=== PATIENT | male | born 1995 | race Caucasian/White ===

== ENCOUNTER 2018-04-16 04:32 | Emergency (ER) | payer SELFPAY ==
[2018-04-16 04:35] VITALS: BP 154/105
--- NOTE | 2018-04-16 04:44 | ER Report ---
History and Physical Time Seen By MD: 04:42 HPI/ROS CHIEF COMPLAINT: Senior Living clearance HISTORY OF PRESENT ILLNESS: This is a 22 year old male. He is here with the [employer] for nursing home clearance. Drinking heavily tonight, he is a chronic alcoholic. Only complaint is chronic back pain, but not treated by a physician. No other complaints. No concerns from the officers. Blew over 300. Reviewed Nurses Notes: Yes Constitutional Vital Sign - Last 24 Hours 04/16/18 04:35 Temp 97.7 Physical Exam General Appearance: Alert, intoxicated, emotional. Eyes: Pupils equal and round with scleral injection. ENT: Normal oral mucosa. Moist mucous membranes. Tympanic membranes are normal. Neck: Neck is supple and non tender. Respiratory: Chest is non tender, lungs are clear to auscultation. Cardiac: regular rate and rhythm Gastrointestinal: Abdomen is soft and non tender, no masses, bowel sounds normal. Musculoskeletal: Extremities have full range of motion. Skin: No rashes or lesions. DIFFERENTIAL DIAGNOSIS: After history and physical exam differential diagnosis was considered for alcohol intoxication Medical Decision Making ED Course/Re-evaluation ED Course No concerns this time, cleared to go to nursing home Decision to Disposition Date: Apr 16, 2018 Decision to Disposition Time: 04:52 Depart Departure Latest Vital Signs Vital Signs Date Time Temp Pulse Resp B/P (MAP) Pulse Ox O2 Delivery O2 Flow Rate FiO2 04/16/18 04:35 97.7 Impression: Primary Impression: Alcohol intoxication Condition: Condition Unchanged Disposition: FOR[facility]LY [facility] TO PRISON/CORRECTIONAL F Patient Instructions: Alcohol Intoxication (ED) Problem Qualifiers Primary Impression: Alcohol intoxication Complication of substance-induced condition: uncomplicated Qualified Codes: F10.920 - Alcohol use, unspecified with intoxication, uncomplicated SATISH ACOSTA MD Apr 16, 2018 04:44
== END 2018-04-16 05:01 ==
LOC: ER 04:50
DX: F10.920 Alcohol use, unspecified with intoxication, uncomplicated (principal)
CPT/HCPCS: 99281